=== PATIENT | male | born 2000 | race Caucasian/White ===

== ENCOUNTER 2025-04-22 18:41 | Emergency (ER) | payer OTHER ==
[~2025-04-22] VITALS: Ht 167.6 cm; Wt 92.4 kg
[2025-04-22 22:04] LABS: PLATELET COUNT, AUTOMATED 281 10^3/uL (150-450)
[2025-04-22 22:33] LABS: CK-MB VALUE MASS < 1.0 NG/ML (<3.6)
[2025-04-22 22:34] LABS: CALCIUM LEVEL 9.1 MG/DL (8.5-10.1); CARBON DIOXIDE LEVEL 30 MMOL/L (20-31); CHLORIDE LEVEL 103 MMOL/L (98-107); CPK CREATINE PHOSPHOKINASE 94 U/L (46-171); CREATININE FOR GFR 0.95 MG/DL (0.70-1.30); GLOMERULAR FILTRATION RATE > 90.0 (>60); POTASSIUM SERUM 4.0 MMOL/L (3.5-5.1); SODIUM LEVEL 142 MMOL/L (136-145)
[2025-04-22 23:30] VITALS: BP 128/91; TEMP 98; O2SAT 97
== END 2025-04-22 23:50 | disposition home or self-care (01) ==
LOC: M ED 18:41
DX: R07.9 Chest pain, unspecified (principal); F17.200 Nicotine dependence, unspecified, uncomplicated